=== PATIENT | female | born 1985 | race African-American/Black ===

== ENCOUNTER 2017-07-04 09:25 | Inpatient (IN) | payer OTHER ==
[2017-07-04] MEDS ORDERED: DEXTROSE 5%-LACTATED RINGERS 500 ML IV SCH (10:00)
[2017-07-04] MEDS ORDERED: DEXTROSE 5%-LACTATED RINGERS 1,000 ML IV SCH (11:00)
[2017-07-04] MEDS ORDERED: PROMETHAZINE HCL 25 MG/1 ML VIAL IVPB ONE (12:30)
[2017-07-04] MEDS ORDERED: BUTORPHANOL TARTRATE 1 MG/ML VIAL IVPB ONE (12:30)
[2017-07-04] MEDS ORDERED: BUTORPHANOL TARTRATE 1 MG/ML VIAL ONE ×2 (13:19)
[2017-07-04] MEDS ORDERED: PROMETHAZINE HCL 25 MG/1 ML VIAL ONE (13:20)
[2017-07-04] MEDS ORDERED: AMPICILLIN - 2 GM in SODIUM CHLORIDE 100 ML IVPB ONE (13:30)
[2017-07-04] MEDS ORDERED: AMPICILLIN SODIUM 2 GM VIAL ONE (13:31)
[2017-07-04 14:11] VITALS: BMI 33.0
[2017-07-04] MEDS ORDERED: TUBERCULIN PPD 5 TU/0.1ML SYRINGE (IN PATIENT USE ONLY) ID ONE ×2 (14:30→14:45)
[2017-07-04 15:21] LABS: HEMATOCRIT 37.4 % (32.4-45.2); HEMOGLOBIN 12.9 GM/dL (10.7-15.3); LYMPH % 5.6 % (8-40); MCH 32.5 pg (25.7-33.7); MCHC 34.4 g/dl (32.0-36.0); MEAN CELL VOLUME 94.4 fl (80-96); MEAN PLT VOLUME 9.4 fl (7.5-11.1); MONO % 3.4 % (3.8-10.2); PLATELET COUNT 190 K/MM3 (134-434); RBC 3.96 M/mm3 (3.60-5.2)
[2017-07-04 15:46] LABS: INR 0.93 (0.82-1.09); PROTHROMBIN TIME (PATIENT) 10.5 SEC (9.98-11.88)
[2017-07-04 15:48] LABS: ACTIVATED PTT 26.8 SECONDS (26.9-34.4)
[2017-07-04 16:13] LABS: ANION GAP 12 (8-16); BLOOD UREA NITROGEN 7 mg/dL (7-18); CALCIUM 9.2 mg/dL (8.5-10.1); CHLORIDE 102 mmol/L (98-107); CO2 26 mmol/L (21-32); CREATININE 0.6 mg/dL (0.55-1.02); GLUCOSE,RANDOM 99 mg/dL (74-106); POTASSIUM 4.1 mmol/L (3.5-5.1); SODIUM 140 mmol/L (136-145)
--- NOTE | 2017-07-04 16:33 | HP ---
Past Medical History - Primary Care Physician PCP:: Placido Wu - Admission Chief Complaint: 40 weeks, labor History of Present Illness: 31 yo g 1 p0 edc 07/04/17 in labor , cx 4 cm 80 vx -2 mi, fhr cat 1, contraction q 4 min, admitted in labor History Source: Patient Limitations to Obtaining History: No Limitations - Past Medical History ...: 1 ...Para: 0 ...Term: 0 ...: 0 ...Spon : 0 ...Induced : 0 ...Multiple Gestation: 0 ...LMP: 09/27/16 ... Weeks Gestation by Dates: 40.0 ...EDC by Dates: 07/04/17 - Past Surgical History Hx Myomectomy: No Hx Transabdominal Cerclage: No - Smoking History Smoking history: Never smoked - Alcohol/Substance Use Hx Alcohol Use: No - Social History Usual Living Arrangement: Yes: With Spouse History of Recent Travel: No Home Medications - Allergies Allergies/Adverse Reactions: Allergies Allergy/AdvReac Type Severity Reaction Status Date / Time No Known Allergies Allergy Verified 07/04/17 10:11 - Home Medications Home Medications: Ambulatory Orders Ascorbate Calcium [Vitamin C] 500 mg PO DAILY 07/04/17 Cholecalciferol (Vitamin D3) [Vitamin D3 -] 400 unit PO DAILY 07/04/17 Vit 93/Iron Fum/Folic [ Formula Tablet] 1 tab PO DAILY Review of Systems - Review of Systems Constitutional: reports: No Symptoms Eyes: reports: No Symptoms HENT: reports: No Symptoms Neck: reports: No Symptoms Cardiovascular: reports: No Symptoms Respiratory: reports: No Symptoms Gastrointestinal: reports: No Symptoms Genitourinary: reports: No Symptoms Breasts: reports: No Symptoms Reported Musculoskeletal: reports: No Symptoms Integumentary: reports: No Symptoms Neurological: reports: No Symptoms Endocrine: reports: No Symptoms Hematology/Lymphatic: reports: No Symptoms Psychiatric: reports: No Symptoms Physical Exam - Maternity Vital Signs: Vital Signs Temperature 98.2 F 07/04/17 13:54 Pulse Rate 94 H 07/04/17 14:00 Respiratory Rate 07/04/17 14:00 Blood Pressure 101/46 07/04/17 14:00 O2 Sat by Pulse Oximetry (%) Constitutional: Yes: Well Nourished, No Distress, Calm Eyes: Yes: WNL, Conjunctiva Clear, EOM Intact HENT: Yes: WNL, Atraumatic, Normocephalic Neck: Yes: WNL, Supple, Trachea Midline Cardiovascular: Yes: WNL, Regular Rate and Rhythm Breast(s): Yes: WNL - Abdominal Exam/OB Fundal Height: 40 Number of Fetuses: Single Presentation: Vertex Contractions: Yes Regularity: Regular Intensity: Mod/Strong Monitor Mode: External Heart Rate Location: [facility] Category: I Accelerations: None - Vaginal Exam/OB Vaginal Bleediing: Bloody Show Amniotic Membrane Status: Bulging Presentation: Vertex/Position Station: -2 - Physical Exam Musculoskeletal: Yes: WNL Edema: Yes Edema: LLE: Trace, RLE: Trace Deep Tendon Reflex Grade: Normal +2 ...Motor Strength: LLE - Labs Lab Results: CBC, BMP 07/04/17 14:30 Hemorrhage Risk Assessment - Risk Factors Medium Risk Factors: Yes: None High Risk Factors: Yes: None Risk Score: 1 Risk Level: Medium Risk Problem List - Problems (1) 40 weeks gestation of Code(s): Z3A.40 - 40 WEEKS GESTATION OF (2) Labor established Code(s): XZA5691 - Assessment/Plan admit, FHM, pain management
[2017-07-04] MEDS ORDERED: FENTANYL/BUPIVACAINE/NS/PF - PCEA - 50 ML DISP.SYRIN EP ONE ×2 (16:49→21:00)
[2017-07-04] MEDS: AMPICILLIN - 1 GM in SODIUM CHLORIDE 100 ML IVPB SCH (17:30)
[2017-07-04] MEDS ORDERED: AMPICILLIN SODIUM 1 GM VIAL ONE (17:35)
[2017-07-04] MEDS ORDERED: NALOXONE HCL 0.4 MG/ML VIAL IVPUSH PRN (17:41)
[2017-07-04] MEDS ORDERED: FENTANYL/BUPIVACAINE/NS/PF - PCEA - 50 ML DISP.SYRIN EP SCH (17:45)
[2017-07-04] MEDS ORDERED: ELECTROLYTE-148 SOLN 1,000 ML IV SCH (17:45)
[2017-07-04] MEDS ORDERED: OXYTOCIN 30 UNITS in 0.9% NS 30 UNIT/500 ML INFUS.BAG IVPB SCH (17:45)
[2017-07-04] MEDS ORDERED: OXYTOCIN 30 UNITS in 0.9% NS 30 UNIT/500 ML INFUS.BAG IVPB ONE (19:53)
--- NOTE | 2017-07-04 21:24 | PN ---
Progress Note (short form) - Note Progress Note: cx 9 cm, 100 vx 0 arom, clear, fhr cat 1 Problem List - Problems (1) 40 weeks gestation of Code(s): Z3A.40 - 40 WEEKS GESTATION OF (2) Labor established Code(s): CQF2150 -
[2017-07-04] MEDS ORDERED: OXYTOCIN 20 UNITS in 0.9% NS 20 UNIT/1,000 ML INFUS.BAG IV ONE ×2 (21:54→23:36)
[2017-07-04] MEDS ORDERED: WITCH HAZEL 50% (TUCKS) 40 PAD/JAR PAD TP PRN (22:56)
[2017-07-04] MEDS ORDERED: BENZOCAINE 20% 57 GM BOTTLE TP PRN (22:56)
[2017-07-04] MEDS ORDERED: BENZOCAINE 28 GM HEMORRHOIDAL OINTMENT TP PRN (22:56)
[2017-07-04] MEDS ORDERED: BISACODYL 10 MG SUPP.RECT RC PRN (22:56)
[2017-07-04] MEDS ORDERED: oxyCODONE HCL 5 MG TABLET PO PRN (22:56)
[2017-07-04] MEDS ORDERED: METHYLERGONOVINE MALEATE 0.2 MG/1 ML AMP IM PRN (22:56)
[2017-07-04] MEDS ORDERED: D5W-LR W/ 20 UNITS OXYTOCIN 20 UNIT/1,000 ML INFUS.BAG IV SCH (23:00)
[2017-07-05] MEDS: IBUPROFEN 600 MG TABLET (FP) PO PRN ×3 (02:35→23:51)
[2017-07-05] MEDS: ACETAMINOPHEN 325 MG TABLET (FP) PO PRN ×4 (02:35→23:50)
--- NOTE | 2017-07-05 07:26 | DS ---
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 Signs: Vital Signs Temperature 98.3 F 07/05/17 06:00 Pulse Rate 96 H 07/05/17 06:00 Respiratory Rate 18 07/05/17 06:00 Blood Pressure 98/54 07/05/17 06:00 O2 Sat by Pulse Oximetry (%) 98 07/05/17 00:00 Constitutional: Yes: Well Nourished, No Distress, Calm Eyes: Yes: WNL, Conjunctiva Clear, EOM Intact HENT: Yes: WNL, Atraumatic, Normocephalic Neck: Yes: WNL, Supple, Trachea Midline Cardiovascular: Yes: WNL, Regular Rate and Rhythm Respiratory: Yes: WNL, Regular, CTA Bilaterally Gastrointestinal: Yes: WNL ...Rectal Exam: Yes: WNL Renal/: Yes: WNL ....Post : Yes: Uterus firm, Uterus non-tender, Slight lochia rubra Breast(s): Yes: WNL Musculoskeletal: Yes: WNL Extremities: Yes: WNL Edema: No Integumentary: Yes: WNL Neurological: Yes: WNL, Alert, Oriented ...Motor Strength: WNL Psychiatric: Yes: WNL, Alert, Oriented Labs: CBC, BMP 07/04/17 14:30 07/04/17 14:30 Delivery - Delivery Vaginal Delivery: Spontaneous (no complication) Type of Anesthesia: Epidural Episiotomy/Laceration: Midline (no complication) Delivery, Single - Stages of Labor Date 1st Stage Initiatied: 07/04/17 Time 1st Stage Initiated: 16:25 Date 2nd Stage Initiated: 07/04/17 Time 2nd Stage Initiated: 21:15 Date of Delivery: 07/04/17 Time of Delivery: 22:31 Time Placenta Delivered: 22:35 Placenta: Yes: Spontaneous - 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 Gender: Male Weight: 7 lb 2 oz Position: Left, OP Total Hours ROM (Hrs/Mins): 1 hour/16 minutes - 1 Minute Total Score: 9 5 Minutes Total Score: 9 - Feeding Plan Initial Plan: Exclusive throughout hospitalization Discharge Summary Reason For Visit: LABOR ADMIT Current Active Problems 40 weeks gestation of (Acute) Labor established (Acute) Procedures: Principal: Condition: Good - Instructions Diet, Activity, Other Instructions: regular diet,if pain, heavy vaginal bleeding, fever call MD Referrals: Placido Wu MD [Staff Physician] - - Home Medications Comprehensive Discharge Medication List: Ambulatory Orders Ascorbate Calcium [Vitamin C] 500 mg PO DAILY 07/04/17 Cholecalciferol (Vitamin D3) [Vitamin D3 -] 400 unit PO DAILY 07/04/17 Vit 93/Iron Fum/Folic [ Formula Tablet] 1 tab PO DAILY
--- NOTE | 2017-07-05 07:30 | PN ---
Progress Note (short form) - Note Progress Note: ppd 1 , s/p , doing well, no excess vaginal bleeding CBC, BMP 07/04/17 14:30 07/04/17 14:30 Last Vital Signs Temp Pulse Resp BP Pulse Ox 98.3 F 96 H 18 98/54 98 07/05/17 06:00 07/05/17 06:00 07/05/17 06:00 07/05/17 06:00 07/05/17 00:00 uterus firm, non tender, no cva lochia mild no calf tenderness plan ambulate , cbc,plan for d/c home in am Problem List - Problems (1) 40 weeks gestation of Code(s): Z3A.40 - 40 WEEKS GESTATION OF (2) Labor established Code(s): EHG4464 -
[2017-07-05 08:35] LABS: BASO % 0.1 % (0-2.0); HEMATOCRIT 28.5 % (32.4-45.2); HEMOGLOBIN 9.6 GM/dL (10.7-15.3); LYMPH % 8.8 % (8-40); MCH 31.9 pg (25.7-33.7); MCHC 33.7 g/dl (32.0-36.0); MEAN CELL VOLUME 94.4 fl (80-96); MEAN PLT VOLUME 9.5 fl (7.5-11.1); MONO % 8.3 % (3.8-10.2); NEUT % 82.8 % (42.8-82.8); PLATELET COUNT 159 K/MM3 (134-434); RBC 3.02 M/mm3 (3.60-5.2); RDW 13.2 % (11.6-15.6); WHITE BLOOD COUNT 15.7 K/mm3 (4.0-10.0)
[2017-07-05] MEDS: FERROUS SO4 325 MG TABLET (FP) PO SCH ×2 (10:08→18:02)
[2017-07-05] MEDS: PRENATAL VITAMINS W/ FOLIC ACID TABLET (FP) PO SCH (10:15)
[2017-07-05] MEDS ORDERED: SENNOSIDES/DOCUSATE COMBO (SENNA PLUS) TABLET (UD) PO PRN (22:00)
[2017-07-06] MEDS: AMPICILLIN - 1 GM in SODIUM CHLORIDE 100 ML IVPB SCH ×2 (01:11→08:40)
[2017-07-06] MEDS: ACETAMINOPHEN 325 MG TABLET (FP) PO PRN ×2 (07:30→12:34)
[2017-07-06] MEDS: IBUPROFEN 600 MG TABLET (FP) PO PRN ×2 (07:31→12:34)
[2017-07-06] MEDS: FERROUS SO4 325 MG TABLET (FP) PO SCH (07:31)
[2017-07-06 08:48] VITALS: BP 116/71; PULSE 106; TEMP 98.3
[2017-07-06] MEDS: PRENATAL VITAMINS W/ FOLIC ACID TABLET (FP) PO SCH (10:32)
--- NOTE | 2017-07-06 17:19 | PN ---
Post Progress Note - Subjective Subjective: 31yo P1 s/p , no complains , tolerating PO, pain well controlled Post Day: 2 Type of Delivery: Vital Signs: Vital Signs Temperature 98.3 F 07/06/17 08:46 Pulse Rate 106 H 07/06/17 08:46 Respiratory Rate 20 07/06/17 08:46 Blood Pressure 116/71 07/06/17 08:46 O2 Sat by Pulse Oximetry (%) 98 07/05/17 00:00 Breast Exam: Yes: Soft Uterus: Yes: Fundus Firm Abdomen/GI: Yes: Abdomen soft Lochia: Yes: Rubra Lochia, amount: Moderate Extremities: Yes: Calves non-tender Perineum: Yes: Episiotomy (well healing) Activity: Ambulating - Labs Labs: CBC WBC 15.7 K/mm3 (4.0-10.0) H 07/05/17 06:40 RBC 3.02 M/mm3 (3.60-5.2) L D 07/05/17 06:40 Hgb 9.6 GM/dL (10.7-15.3) L D 07/05/17 06:40 Hct 28.5 % (32.4-45.2) L D 07/05/17 06:40 MCV 94.4 fl (80-96) 07/05/17 06:40 MCH 31.9 pg (25.7-33.7) 07/05/17 06:40 MCHC 33.7 g/dl (32.0-36.0) 07/05/17 06:40 RDW 13.2 % (11.6-15.6) 07/05/17 06:40 Plt Count 159 K/MM3 (134-434) 07/05/17 06:40 MPV 9.5 fl (7.5-11.1) 07/05/17 06:40 Neutrophils % 82.8 % (42.8-82.8) 07/05/17 06:40 Lymphocytes % 8.8 % (8-40) D 07/05/17 06:40 Monocytes % 8.3 % (3.8-10.2) D 07/05/17 06:40 Eosinophils % 0.0 % (0-4.5) 07/05/17 06:40 Basophils % 0.1 % (0-2.0) D 07/05/17 06:40 Assessment/Plan 31yo P1 s/p VSS, Afebrile doing well Plan to D/C home today discussed Nothing vaginally for 6weeks Return to office in4-6weeks
== END 2017-07-06 16:30 | disposition home or self-care (01) | DRG 560 ==
LOC: JDEL 09:25 → JLDR 12:30 → J3W 07-05 01:14
PROVIDERS: ADMIT Obstetrics & Gynecology; ATTEND Obstetrics & Gynecology
PROC: 10E0XZZ Delivery of Products of Conception, External Approach (ICD-10-PCS; principal; 2017-07-04)
PROC: 0W8NXZZ Division of Female Perineum, External Approach (ICD-10-PCS; 2017-07-04)
DX: O48.0 Post-term pregnancy (principal); Z3A.40 40 weeks gestation of pregnancy; Z37.0 Single live birth
CPT/HCPCS: 36415; 59409; 80048; 85025; 85610; 85730; 86593; 86850; 86900; 86901; 87389